=== PATIENT | female | born 1960 | race Caucasian/White ===

== ENCOUNTER 2018-04-25 17:20 | Emergency (ER) | payer MEDICAID ==
[~2018-04-25] VITALS: Ht 149.9 cm; Wt 78.9 kg
[2018-04-25 17:37] VITALS: BP 141/97
== END 2018-04-25 18:41 | disposition home or self-care (01) ==
LOC: ED 18:05
DX: K13.0 Diseases of lips (principal); K21.9 Gastro-esophageal reflux disease without esophagitis; Z87.891 Personal history of nicotine dependence
CPT/HCPCS: 10160; 99284

== ENCOUNTER 2018-09-09 09:19 | Inpatient (IN) | payer MEDICAID ==
[~2018-09-09] VITALS: Ht 149.9 cm; Wt 91.4 kg
--- NOTE | 2018-09-09 10:22 | NUR ---
PT C/O FOOT PAIN, LEGS HURT, LEFT SHOULDER, KNEES AND MAY ALONG WITH CHEST AND ABDOMINAL PAIN.
[2018-09-09 10:37] LABS: MEAN CORPUSCULAR HEMOGLOBIN 27.2 pg (27.0-34.8); MEAN CORPUSCULAR HGB CONC 32.5 g/dL (32.4-35.8); MEAN CORPUSCULAR VOLUME 83.6 fL (80-100); MEAN PLATELET VOLUME 7.5 fL (7.4-10.4); PLATELET COUNT 298 x10^3/uL (130-400); RED BLOOD COUNT 4.75 x10^6/uL (3.82-5.3); RED CELL DISTRIBUTION WIDTH 13.6 % (9.6-15.2)
[2018-09-09 10:45] LABS: ALANINE AMINOTRANSFERASE 22 U/L (12-78); ALBUMIN 3.4 g/dL (3.4-5.0); ANION GAP 9 mmol/L (5-15); CALCIUM 8.5 mg/dL (8.5-10.1); CHLORIDE 107 mmol/L (98-107); CREATININE 1.27 mg/dL (0.55-1.02)
[2018-09-09 10:49] LABS: ALKALINE PHOSPHATASE 99 U/L (45-117); BILIRUBIN,TOTAL 0.4 mg/dL (0.2-1.0); CREATINE KINASE, TOTAL 85 U/L (26-192); TOTAL PROTEIN 6.9 g/dL (6.4-8.2); TROPONIN I < 0.015 ng/mL (0.000-0.045)
[2018-09-09 10:54] LABS: MD YES
[2018-09-09 10:55] LABS: BAND#(MANUAL) 1.54 x10^3/uL; BANDS%(MANUAL) 7 % (0-7); MONOS#(MANUAL) 0.44 x10^3/uL (0.3-2.7); MONOS% (MANUAL) 2 % (2-9)
[2018-09-09 10:56] LABS: <RBC MORPHOLOGY> NORMAL; LYMPH#(MANUAL) 0.88 x10^3/uL (1-3.4); LYMPHS% (MANUAL) 4 % (22-44); SEG#(MANUAL) 19.14 x10^3/uL (1.8-6.8); SEGS% (MANUAL) 87 % (42-75)
[2018-09-09 10:57] LABS: <PLATELET ESTIMATE> ADEQUATE; <PLT MORPHOLOGY> NORMAL PLT MORPH
[2018-09-09] MEDS ORDERED: AZITHROMYCIN 500 MG in SODIUM CHLORIDE 0.9% 250 ML IVPB ONE (11:00)
[2018-09-09] MEDS ORDERED: CEFTRIAXONE PMX 1GM/50ML 50 ML IVPB ONE (11:00)
[2018-09-09 11:16] LABS: MICROSCOPIC AUTO
[2018-09-09 11:22] LABS: CULTURE INDICATED? YES
[2018-09-09] MEDS ORDERED: CEFTRIAXONE PMX 1GM/50ML 50 ML ONE (11:27)
[2018-09-09] MEDS ORDERED: BUPR-86 PO (11:49)
[2018-09-09] MEDS ORDERED: OMEP40CA6 PO (11:49)
[2018-09-09] MEDS ORDERED: PARO40TA3 PO (11:49)
[2018-09-09] MEDS ORDERED: TRAZ-137 PO (11:49)
[2018-09-09] MEDS ORDERED: TOPI50TA8 PO (11:51)
[2018-09-09] MEDS ORDERED: ONDANSETRON 2MG/ML, 2ML ONE (11:53)
[2018-09-09] MEDS ORDERED: MORPHINE SULFATE 4 MG/ML, 1ML ONE ×2 (11:53→13:44)
[2018-09-09] MEDS: MORPHINE SULFATE 4 MG/ML, 1ML IVPush PRN ×2 (11:54→13:45)
[2018-09-09] MEDS ORDERED: ONDANSETRON 2MG/ML, 2ML IVP ONE (12:00)
--- NOTE | 2018-09-09 12:15 | NUR ---
AFTER MEDICATED FOR MAY PT TO CT
[2018-09-09] MEDS ORDERED: OMNIPAQUE 350 MG/ML, 100ML BOTTLE ONE (12:48)
[2018-09-09] MEDS ORDERED: SODIUM CHLORIDE FLUSH 10ML SYR IVF PRN (13:30)
--- NOTE | 2018-09-09 14:20 | NUR ---
DECREASE IN BP TO 87. IV BOLUS INFUSING PER HOSPITIALIST ORDER
[2018-09-09] MEDS ORDERED: POTASSIUM CHLORIDE 20 MEQ TAB.ER.PRT PO ONE (14:30)
[2018-09-09] MEDS ORDERED: SODIUM CHLORIDE 0.9% 1,000ML IVBOLUS ONE ×2 (14:30→15:30)
[2018-09-09] MEDS ORDERED: ONDANSETRON 2MG/ML, 2ML IVPush PRN (14:30)
--- NOTE | 2018-09-09 14:46 | NUR ---
REPORT TO ELIANA DEE
--- NOTE | 2018-09-09 14:46 | NUR ---
PT A&O X4, CONTINUES TO C/O FEELING FATIUGED. SKIN P/W/D
[2018-09-09 15:09] LABS: RAPID INFLUENZA A Negative (Negative); RAPID INFLUENZA B Negative (Negative)
[2018-09-09 15:12] VITALS: BP 93/62
[2018-09-09] MEDS: ENOXAPARIN 40 MG/0.4 ML SQ SCH (16:03)
[2018-09-09] MEDS: ACETAMINOPHEN 325 MG TABLET PO PRN (17:48)
[2018-09-09 18:42] VITALS: BP 85/53
[2018-09-09 19:20] VITALS: BP 95/54
[2018-09-09] MEDS: SODIUM CHLORIDE 0.9% 1,000 ML IV SCH (20:29)
[2018-09-09] MEDS: TRAZODONE 100MG TABLET PO SCH (21:00)
[2018-09-09 21:30] VITALS: BP 84/57
[2018-09-09 22:14] VITALS: BP 88/56
[2018-09-10] VITALS (8 sets, daily range): BP systolic 83–124; BP diastolic 49–69
[2018-09-10] MEDS: ACETAMINOPHEN 325 MG TABLET PO PRN ×4 (01:04→21:59)
[2018-09-10] MEDS: SODIUM CHLORIDE 0.9% 1,000 ML IV SCH ×3 (03:16→18:22)
[2018-09-10] MEDS ORDERED: SODIUM CHLORIDE 0.9% 1,000ML IVBOLUS ONE (08:00)
[2018-09-10] MEDS: BUPROPION HCL 200 MG PO SCH (09:00)
[2018-09-10 09:02] LABS: BASOPHILS # (AUTO) 0.01 x10^3/uL (0-0.1); BASOPHILS % (AUTO) 0 % (0-1); EOSINOPHILS # (AUTO) 0.11 x10^3/uL (0-0.4); EOSINOPHILS % (AUTO) 1 % (1-7); LYMPHOCYTES # (AUTO) 1.25 x10^3/uL (1-3.4); LYMPHOCYTES % (AUTO) 10 % (22-44); MD NO; MEAN CORPUSCULAR HEMOGLOBIN 27.1 pg (27.0-34.8); MEAN CORPUSCULAR HGB CONC 32.4 g/dL (32.4-35.8); MEAN CORPUSCULAR VOLUME 83.6 fL (80-100); MEAN PLATELET VOLUME 7.3 fL (7.4-10.4); MONOCYTES # (AUTO) 0.31 x10^3/uL (0.2-0.8); MONOCYTES % (AUTO) 3 % (2-9); NEUTROPHILS # (AUTO) 10.98 x10^3/uL (1.8-6.8); NEUTROPHILS % (AUTO) 87 % (42-75); PLATELET COUNT 252 x10^3/uL (130-400); RED CELL DISTRIBUTION WIDTH 13.9 % (9.6-15.2)
[2018-09-10 09:09] LABS: ANION GAP 10 mmol/L (5-15); CHLORIDE 116 mmol/L (98-107); CREATININE 0.92 mg/dL (0.55-1.02)
[2018-09-10] MEDS: PAROXETINE 20 MG TABLET PO SCH (09:11)
[2018-09-10] MEDS: OMEPRAZOLE 20 MG CAPSULE.DR PO SCH (09:11)
[2018-09-10] MEDS: CEFTRIAXONE PMX 2GM/50ML 50 ML IV SCH (11:25)
[2018-09-10] MEDS: AZITHROMYCIN 500 MG in SODIUM CHLORIDE 0.9% 250 ML IV SCH (12:12)
[2018-09-10] MEDS: ENOXAPARIN 40 MG/0.4 ML SQ SCH (16:32)
[2018-09-10] MEDS: TRAZODONE 100MG TABLET PO SCH (20:48)
[2018-09-11] MEDS: SODIUM CHLORIDE 0.9% 1,000 ML IV SCH ×3 (01:02→19:48)
[2018-09-11 02:30] VITALS: BP 133/82
[2018-09-11 06:18] LABS: BASOPHILS # (AUTO) 0.03 x10^3/uL (0-0.1); BASOPHILS % (AUTO) 0 % (0-1); EOSINOPHILS # (AUTO) 0.18 x10^3/uL (0-0.4); EOSINOPHILS % (AUTO) 2 % (1-7); LYMPHOCYTES # (AUTO) 1.24 x10^3/uL (1-3.4); LYMPHOCYTES % (AUTO) 12 % (22-44); MD NO; MEAN CORPUSCULAR HGB CONC 32.8 g/dL (32.4-35.8); MEAN CORPUSCULAR VOLUME 85.4 fL (80-100); MEAN PLATELET VOLUME 8.1 fL (7.4-10.4); MONOCYTES # (AUTO) 0.43 x10^3/uL (0.2-0.8); MONOCYTES % (AUTO) 4 % (2-9); NEUTROPHILS # (AUTO) 8.68 x10^3/uL (1.8-6.8); NEUTROPHILS % (AUTO) 82 % (42-75); PLATELET COUNT 271 x10^3/uL (130-400); RED BLOOD COUNT 3.95 x10^6/uL (3.82-5.3); RED CELL DISTRIBUTION WIDTH 13.7 % (9.6-15.2)
[2018-09-11 06:27] LABS: ANION GAP 4 mmol/L (5-15); CALCIUM 8.6 mg/dL (8.5-10.1); CHLORIDE 113 mmol/L (98-107); CREATININE 0.95 mg/dL (0.55-1.02)
[2018-09-11 07:27] VITALS: BP 138/81
[2018-09-11] MEDS: BUPROPION HCL 200 MG PO SCH (08:37)
[2018-09-11] MEDS: PAROXETINE 20 MG TABLET PO SCH (08:37)
[2018-09-11] MEDS: OMEPRAZOLE 20 MG CAPSULE.DR PO SCH (08:37)
[2018-09-11] MEDS ORDERED: POTASSIUM CHLORIDE 20 MEQ TAB.ER.PRT PO ONE (09:30)
[2018-09-11] MEDS: CEFTRIAXONE PMX 2GM/50ML 50 ML IV SCH (11:34)
[2018-09-11] MEDS: AZITHROMYCIN 500 MG in SODIUM CHLORIDE 0.9% 250 ML IV SCH (12:13)
[2018-09-11] MEDS: ACETAMINOPHEN 325 MG TABLET PO PRN ×2 (12:18→19:48)
[2018-09-11 13:13] VITALS: BP 137/70
[2018-09-11] MEDS: ENOXAPARIN 40 MG/0.4 ML SQ SCH (15:54)
[2018-09-11] MEDS ORDERED: MAGNESIUM SULFATE PMX 2GM/50ML 50 ML IV ONE (16:30)
[2018-09-11] MEDS: TRAZODONE 100MG TABLET PO SCH (19:48)
[2018-09-11 20:10] VITALS: BP 116/74
[2018-09-12] MEDS: ACETAMINOPHEN 325 MG TABLET PO PRN ×2 (01:21→12:36)
[2018-09-12 01:31] VITALS: BP 137/79
[2018-09-12] MEDS: SODIUM CHLORIDE 0.9% 1,000 ML IV SCH ×3 (02:00→16:00)
[2018-09-12 05:44] LABS: ALANINE AMINOTRANSFERASE 13 U/L (12-78); ALBUMIN 2.8 g/dL (3.4-5.0); ANION GAP 4 mmol/L (5-15); CALCIUM 8.6 mg/dL (8.5-10.1); CHLORIDE 114 mmol/L (98-107); CREATININE 0.89 mg/dL (0.55-1.02)
[2018-09-12 05:48] LABS: ALKALINE PHOSPHATASE 79 U/L (45-117); BILIRUBIN,TOTAL 0.3 mg/dL (0.2-1.0); TOTAL PROTEIN 6.6 g/dL (6.4-8.2); TROPONIN I < 0.015 ng/mL (0.000-0.045)
[2018-09-12 06:08] LABS: BASOPHILS # (AUTO) 0.04 x10^3/uL (0-0.1); BASOPHILS % (AUTO) 1 % (0-1); EOSINOPHILS # (AUTO) 0.25 x10^3/uL (0-0.4); EOSINOPHILS % (AUTO) 3 % (1-7); LYMPHOCYTES # (AUTO) 1.48 x10^3/uL (1-3.4); LYMPHOCYTES % (AUTO) 18 % (22-44); MD NO; MEAN CORPUSCULAR HEMOGLOBIN 27.7 pg (27.0-34.8); MEAN CORPUSCULAR HGB CONC 32.6 g/dL (32.4-35.8); MEAN CORPUSCULAR VOLUME 85.1 fL (80-100); MEAN PLATELET VOLUME 7.9 fL (7.4-10.4); MONOCYTES # (AUTO) 0.32 x10^3/uL (0.2-0.8); MONOCYTES % (AUTO) 4 % (2-9); NEUTROPHILS % (AUTO) 75 % (42-75); PLATELET COUNT 310 x10^3/uL (130-400); RED BLOOD COUNT 4.27 x10^6/uL (3.82-5.3); RED CELL DISTRIBUTION WIDTH 13.8 % (9.6-15.2)
[2018-09-12 07:11] VITALS: BP 117/71
[2018-09-12] MEDS: BUPROPION HCL 200 MG PO SCH (08:35)
[2018-09-12] MEDS: OMEPRAZOLE 20 MG CAPSULE.DR PO SCH (08:37)
[2018-09-12] MEDS: PAROXETINE 20 MG TABLET PO SCH (08:37)
[2018-09-12] MEDS ORDERED: MAGNESIUM OXIDE 400 MG TABLET PO SCH (09:00)
[2018-09-12] MEDS: CEFTRIAXONE PMX 2GM/50ML 50 ML IV SCH (11:56)
[2018-09-12] MEDS: AZITHROMYCIN 500 MG in SODIUM CHLORIDE 0.9% 250 ML IV SCH (12:36)
[2018-09-12 13:04] VITALS: BP 125/77
[2018-09-12] MEDS ORDERED: CEFDINIR 300 MG CAPSULE PO SCH (15:30)
[2018-09-12] MEDS ORDERED: AZIT500T5 PO (15:40)
[2018-09-12] MEDS ORDERED: LACT1TAB13 PO (15:40)
[2018-09-12] MEDS ORDERED: CEFD300C37 PO (15:40)
[2018-09-12] MEDS ORDERED: MAGN400T50 PO (15:40)
[2018-09-12] MEDS: ENOXAPARIN 40 MG/0.4 ML SQ SCH (16:00)
[2018-09-13] MEDS ORDERED: AZITHROMYCIN 500 MG TABLET PO SCH (09:00)
== END 2018-09-12 18:28 | disposition home or self-care (01) | DRG 871 ==
LOC: ED 10:44 → EDIP 13:29 → 4EST 15:17
PROVIDERS: ADMIT Internal Medicine; ATTEND Internal Medicine
DX: A41.9 Sepsis, unspecified organism (principal); J15.9 Unspecified bacterial pneumonia; N17.0 Acute kidney failure with tubular necrosis; R65.21 Severe sepsis with septic shock; Z68.41 Body mass index [BMI] 40.0-44.9, adult; D63.8 Anemia in other chronic diseases classified elsewhere; E83.42 Hypomagnesemia; E87.6 Hypokalemia; F32.9 Major depressive disorder, single episode, unspecified; K21.9 Gastro-esophageal reflux disease without esophagitis; F41.9 Anxiety disorder, unspecified; E66.9 Obesity, unspecified; I10 Essential (primary) hypertension; K44.9 Diaphragmatic hernia without obstruction or gangrene; Z80.9 Family history of malignant neoplasm, unspecified; Z82.49 Family history of ischemic heart disease and other diseases of the circulatory system; Z83.3 Family history of diabetes mellitus; Z87.891 Personal history of nicotine dependence; Z79.899 Other long term (current) drug therapy
CPT/HCPCS: 36415; 70450; 71046; 71275; 80048; 80053; 81001; 82550; 83605; 83735; 84100; 84484; 85025; 85379; 86738; 87040; 87086; 87400; 87449; 87633; 93005; 96365; 96375; G0378; J0456; J0696; J1650; J2405; Q9967; J2270; J3475; J7030; J7050

== ENCOUNTER 2020-07-21 17:52 | Inpatient (IN) | payer MEDICAID, OTHER ==
[~2020-07-21] VITALS: Ht 154.9 cm; Wt 86.2 kg
[~2020-07-21 17:52] MED LIST: AZIT500T10 PO; BUPR-86 PO; CEFD300C37 PO; LACT1TAB13 PO; MAGN400T50 PO; OMEP40CA42 PO; PARO40TA3 PO; TOPI50TA8 PO; TRAZ-175 PO
[2020-07-21 18:22] LABS: BASOPHILS % (AUTO) 2 % (0-1); EOSINOPHILS % (AUTO) 2 % (1-7); LYMPHOCYTES % (AUTO) 39 % (22-44); MD NO; MEAN CORPUSCULAR HEMOGLOBIN 32.5 pg (27.0-34.8); MEAN CORPUSCULAR HGB CONC 34.5 g/dL (32.4-35.8); MEAN PLATELET VOLUME 6.9 fL (7.4-10.4); MONOCYTES % (AUTO) 7 % (2-9); NEUTROPHILS % (AUTO) 50 % (42-75); PLATELET COUNT 223 x10^3/uL (130-400); RED BLOOD COUNT 4.42 x10^6/uL (3.82-5.3); RED CELL DISTRIBUTION WIDTH 13.4 % (9.6-15.2)
[2020-07-21 18:30] LABS: ALBUMIN 3.8 g/dL (3.4-5.0); ANION GAP 10 mmol/L (5-15); CALCIUM 8.3 mg/dL (8.5-10.1); CHLORIDE 111 mmol/L (98-107); SALICYLATE LEVEL < 1.7 mg/dL (2.8-20.0)
[2020-07-21] MEDS ORDERED: SODIUM CHLORIDE 0.9% 1,000 ML IV ONE ×2 (18:30→20:30)
[2020-07-21] MEDS ORDERED: SODIUM CHLORIDE FLUSH 10ML SYR IVF ONE (18:30)
[2020-07-21] MEDS ORDERED: SODIUM CHLORIDE 0.9% 1,000ML IVBOLUS ONE (18:30)
[2020-07-21 18:33] LABS: ALANINE AMINOTRANSFERASE 35 U/L (12-78); ALKALINE PHOSPHATASE 70 U/L (45-117); BILIRUBIN,TOTAL 0.2 mg/dL (0.2-1.0); CREATININE 0.86 mg/dL (0.55-1.02); TOTAL PROTEIN 7.7 g/dL (6.4-8.2)
--- NOTE | 2020-07-21 18:50 | NUR ---
BIBA for SA with "no more than a pint of Vodka" per and approx 45 pills of 25mg Benadryl. Consumption time known to after 1500, thought to be around 1600. Hx of depression, no known of SI/SA. Pt lost her son to suicide on 07/09/20, per EMS because of this pt wanted to "go to sleep and not wake up." This RN unable to do suicide screening due to pt's neuro status. Initial contact with pt: Pt ambulatory with contact assist to bathroom upon arrival to ER, in attempt to obtain UA. Pt changed in to gown with assistance, connected to all monitors. , Isaiah to bedside, pt able to answer yes/ no question if it was okay that he was at bedside. Pt's RA sat down to 88% placed on 2L NC, no 96%.
--- NOTE | 2020-07-21 19:00 | NUR ---
ASSUMED CARE OF PATIENT BEDSIDE REPORT GONE.
--- NOTE | 2020-07-21 19:28 | NUR ---
MIHIR, PREVIOUS MINES SAFETY ENGINEER REPORTS POISON CONTROL WAS CALLED: [id number]
--- NOTE | 2020-07-21 19:29 | NUR ---
AT BEDSIDE WITH PATIENT. PT ANXIOUS. VS STABLE. FIBERGLASS PRODUCT TESTER ON. SINUS TACH NOTED. PT IS A&O X4. WILL CONTINUE TO MONITOR.
--- NOTE | 2020-07-21 20:08 | NUR ---
DR DÍAZ IN ROOM. VS STABLE. AT BEDSIDE. PER DR DÍAZ PT IS OKAY TO DRINK WATER.
[2020-07-21] MEDS ORDERED: SODIUM CHLORIDE FLUSH 10ML SYR IVF PRN (20:30)
--- NOTE | 2020-07-21 20:45 | NUR ---
PT USED BEDSIDE COMMODE. PT BECOMING MORE ALERT. AT BEDSIDE. OCEANOLOGIST ON. SINUS TACH NOTED. WILL CONTINUE TO MONITOR.
--- NOTE | 2020-07-21 21:03 | NUR ---
PT IN ROOM VISITING WITH . VS STABLE. NO ACUTE DISTRESS NOTED. CALL LIGHT IN PLACE. WILL CONTINUE TO MONITOR.
[2020-07-21 21:11] LABS: AMPHETAMINE SCREEN, URINE Negative (Negative); BARBITURATE SCREEN, URINE Negative (Negative); BENZODIAZEPINE SCREEN, URINE Negative (Negative); CANNABINOID SCREEN, URINE Negative (Negative); COCAINE SCREEN, URINE Negative (Negative); METHADONE SCREEN, URINE Negative (Negative); OPIATE SCREEN, URINE Negative (Negative)
--- NOTE | 2020-07-21 21:13 | NUR ---
PT WATCHING TV IN ROOM. VS STABLE. PT LESS DROWSY. PLAN CONSULTANT ON. CALL LIGHT IN PLACE. WILL CONTINUE TO MONITOR.
--- NOTE | 2020-07-21 21:46 | NUR ---
PT USED BEDSIDE COMMODE. PT IS NOT STEADY ON HER FEET. VS STABLE. ACCOUNTANT CERTIFIED PUBLIC ON. SINUS TACH NOTED. WILL CONTINUE TO MONITOR.
[2020-07-21] MEDS ORDERED: ONDANSETRON ODT 4 MG PO PRN (22:00)
[2020-07-21] MEDS ORDERED: LORazepam 2 MG/ML, 1ML IV PRN ×4 (22:00)
[2020-07-21] MEDS ORDERED: PROMETHAZINE 25 MG/ML, 1ML IM PRN (22:00)
[2020-07-21] MEDS ORDERED: BISACODYL 10 MG SUPP PR PRN (22:00)
[2020-07-21] MEDS ORDERED: LORazepam 1MG TABLET PO PRN ×3 (22:00)
[2020-07-21] MEDS ORDERED: DOCUSATE 100 MG CAPSULE PO PRN (22:00)
[2020-07-21] MEDS ORDERED: LORazepam 0.5MG TABLET PO PRN (22:00)
[2020-07-21] MEDS ORDERED: hydrALAzine 20 MG/ML, 1ML IVPush PRN (22:00)
[2020-07-21] MEDS ORDERED: POLYETHYLENE GLYCOL 17 GM PACKET PO PRN (22:00)
--- NOTE | 2020-07-21 22:08 | NUR ---
REPORT CALLED INTO [facility] ON [employer]
[2020-07-21 22:12] VITALS: BP 149/96
[2020-07-21] MEDS: POTASSIUM CHLORIDE 40 MEQ in D5%-0.9% NACL 1,000 ML IV SCH (23:33)
[2020-07-21] MEDS: ONDANSETRON 2MG/ML, 2ML IVPush PRN (23:33)
[2020-07-21] MEDS: HEPARIN 5,000 UNITS/ML, 1ML SQ SCH (23:33)
[2020-07-22 01:00] VITALS: BP 138/82
[2020-07-22] MEDS: OXYcodone IR 5MG TABLET PO PRN ×2 (02:14→11:03)
[2020-07-22] MEDS: LORazepam 2 MG/ML, 1ML IV PRN ×2 (02:22→05:40)
[2020-07-22 05:35] LABS: BASOPHILS % (AUTO) 1 % (0-1); EOSINOPHILS % (AUTO) 0 % (1-7); LYMPHOCYTES % (AUTO) 19 % (22-44); MEAN CORPUSCULAR HEMOGLOBIN 32.8 pg (27.0-34.8); MEAN PLATELET VOLUME 7.2 fL (7.4-10.4); MONOCYTES % (AUTO) 6 % (2-9); NEUTROPHILS % (AUTO) 75 % (42-75); PLATELET COUNT 225 x10^3/uL (130-400); RED BLOOD COUNT 4.49 x10^6/uL (3.82-5.3); RED CELL DISTRIBUTION WIDTH 13.4 % (9.6-15.2)
[2020-07-22] MEDS: ONDANSETRON 2MG/ML, 2ML IVPush PRN ×2 (05:40→19:46)
[2020-07-22 05:44] LABS: MD NO
[2020-07-22 05:46] LABS: CHLORIDE 104 mmol/L (98-107)
[2020-07-22 06:02] LABS: ALANINE AMINOTRANSFERASE 34 U/L (12-78); ALBUMIN 3.8 g/dL (3.4-5.0); ALKALINE PHOSPHATASE 71 U/L (45-117); ANION GAP 9 mmol/L (5-15); BILIRUBIN,TOTAL 0.5 mg/dL (0.2-1.0); CALCIUM 8.1 mg/dL (8.5-10.1); CHOLESTEROL, TOTAL 194 mg/dL (140-239); HDL CHOL % 33 % (28-40); HDL CHOLESTEROL (DIRECT) 64 mg/dL (40-60); LDL CHOLESTEROL,CALCULATED 95 mg/dL (54-169); LDL/HDL RATIO 1.5 (0.5-3.0); TOTAL PROTEIN 7.7 g/dL (6.4-8.2); TRIGLYCERIDES 173 mg/dL (50-200); VLDL CHOLESTEROL 35 mg/dL (0-25)
[2020-07-22 06:37] VITALS: BP 150/104
[2020-07-22] MEDS: POTASSIUM CHLORIDE 40 MEQ in D5%-0.9% NACL 1,000 ML IV SCH (08:00)
[2020-07-22] MEDS ORDERED: MAGNESIUM SULFATE PMX 2GM/50ML 50 ML IV ONE ×2 (08:00→20:00)
[2020-07-22] MEDS: HEPARIN 5,000 UNITS/ML, 1ML SQ SCH ×3 (08:20→23:30)
[2020-07-22] MEDS: THIAMINE 100MG TABLET PO SCH (08:21)
[2020-07-22] MEDS: LORazepam 1MG TABLET PO PRN ×4 (08:21→17:51)
[2020-07-22] MEDS: MULTIVITAMINS/MINERALS TABLET PO SCH (08:21)
[2020-07-22] MEDS: FOLIC ACID 1 MG TABLET PO SCH (08:21)
[2020-07-22 12:14] VITALS: BP 147/102
[2020-07-22 18:15] VITALS: BP 150/95
[2020-07-22 19:41] VITALS: BP 128/92
[2020-07-23] MEDS: OXYcodone IR 5MG TABLET PO PRN (01:36)
[2020-07-23 01:46] VITALS: BP 129/88
[2020-07-23 06:26] LABS: BASOPHILS % (AUTO) 1 % (0-1); EOSINOPHILS % (AUTO) 1 % (1-7); LYMPHOCYTES % (AUTO) 18 % (22-44); MEAN CORPUSCULAR HEMOGLOBIN 32.5 pg (27.0-34.8); MEAN CORPUSCULAR HGB CONC 34.3 g/dL (32.4-35.8); MEAN PLATELET VOLUME 7.3 fL (7.4-10.4); MONOCYTES % (AUTO) 6 % (2-9); NEUTROPHILS % (AUTO) 74 % (42-75); PLATELET COUNT 240 x10^3/uL (130-400); RED BLOOD COUNT 4.74 x10^6/uL (3.82-5.3); RED CELL DISTRIBUTION WIDTH 13.4 % (9.6-15.2)
[2020-07-23 06:27] LABS: MD NO
[2020-07-23 06:30] LABS: ALANINE AMINOTRANSFERASE 32 U/L (12-78); ALBUMIN 3.4 g/dL (3.4-5.0); ANION GAP 7 mmol/L (5-15); CALCIUM 8.2 mg/dL (8.5-10.1); CHLORIDE 105 mmol/L (98-107); CREATININE 0.94 mg/dL (0.55-1.02)
[2020-07-23 06:33] LABS: ALKALINE PHOSPHATASE 84 U/L (45-117); BILIRUBIN,TOTAL 1.3 mg/dL (0.2-1.0); TOTAL PROTEIN 7.2 g/dL (6.4-8.2)
[2020-07-23 07:28] VITALS: BP 113/81
[2020-07-23] MEDS: MULTIVITAMINS/MINERALS TABLET PO SCH (08:58)
[2020-07-23] MEDS: SERTRALINE 50MG TABLET PO SCH (08:59)
[2020-07-23] MEDS: THIAMINE 100MG TABLET PO SCH (08:59)
[2020-07-23] MEDS: FOLIC ACID 1 MG TABLET PO SCH (08:59)
[2020-07-23] MEDS: HEPARIN 5,000 UNITS/ML, 1ML SQ SCH ×2 (08:59→18:26)
[2020-07-23] MEDS: LORazepam 1MG TABLET PO PRN ×2 (09:52→18:39)
[2020-07-23 12:00] VITALS: BP 120/87
[2020-07-23] MEDS: ACETAMINOPHEN 325 MG TABLET PO PRN (18:39)
[2020-07-23 19:30] VITALS: BP 88/60
[2020-07-23] MEDS ORDERED: RISPERIDONE 1 MG TABLET PO PRN (20:00)
[2020-07-24 00:54] VITALS: BP 104/72
[2020-07-24] MEDS: HEPARIN 5,000 UNITS/ML, 1ML SQ SCH ×3 (02:10→17:56)
[2020-07-24 05:24] LABS: BASOPHILS % (AUTO) 1 % (0-1); EOSINOPHILS % (AUTO) 2 % (1-7); LYMPHOCYTES % (AUTO) 24 % (22-44); MEAN CORPUSCULAR HEMOGLOBIN 32.4 pg (27.0-34.8); MEAN CORPUSCULAR HGB CONC 34.1 g/dL (32.4-35.8); MEAN PLATELET VOLUME 7.5 fL (7.4-10.4); MONOCYTES % (AUTO) 6 % (2-9); NEUTROPHILS % (AUTO) 67 % (42-75); PLATELET COUNT 210 x10^3/uL (130-400); RED BLOOD COUNT 4.57 x10^6/uL (3.82-5.3); RED CELL DISTRIBUTION WIDTH 13.9 % (9.6-15.2)
[2020-07-24 05:30] LABS: ANION GAP 7 mmol/L (5-15); CALCIUM 8.2 mg/dL (8.5-10.1); CHLORIDE 105 mmol/L (98-107); CREATININE 0.96 mg/dL (0.55-1.02)
[2020-07-24 05:31] LABS: ALANINE AMINOTRANSFERASE 28 U/L (12-78)
[2020-07-24 05:32] LABS: ALKALINE PHOSPHATASE 68 U/L (45-117); BILIRUBIN,TOTAL 0.9 mg/dL (0.2-1.0); TOTAL PROTEIN 6.7 g/dL (6.4-8.2)
[2020-07-24 05:43] LABS: MD NO
[2020-07-24 07:44] VITALS: BP 110/79
[2020-07-24] MEDS: MULTIVITAMINS/MINERALS TABLET PO SCH (09:03)
[2020-07-24] MEDS: SERTRALINE 50MG TABLET PO SCH (09:04)
[2020-07-24] MEDS: THIAMINE 100MG TABLET PO SCH (09:04)
[2020-07-24] MEDS: FOLIC ACID 1 MG TABLET PO SCH (09:06)
[2020-07-24 12:54] VITALS: BP 102/68
[2020-07-24] MEDS ORDERED: RISP1TAB90 PO (16:05)
[2020-07-24] MEDS ORDERED: SERT50TA28 PO (16:05)
[2020-07-24] MEDS ORDERED: MULT-484 PO (16:05)
[2020-07-24] MEDS ORDERED: TRAZ-175 PO (16:05)
[2020-07-24 19:53] VITALS: BP 131/69
[2020-07-24] MEDS: TRAZODONE 100MG TABLET PO PRN (20:42)
[2020-07-25] MEDS: HEPARIN 5,000 UNITS/ML, 1ML SQ SCH ×3 (02:08→17:55)
[2020-07-25 02:10] VITALS: BP 95/69
[2020-07-25 05:36] LABS: BASOPHILS % (AUTO) 0 % (0-1); EOSINOPHILS % (AUTO) 2 % (1-7); LYMPHOCYTES % (AUTO) 27 % (22-44); MEAN CORPUSCULAR HEMOGLOBIN 32.6 pg (27.0-34.8); MEAN CORPUSCULAR HGB CONC 34.1 g/dL (32.4-35.8); MEAN PLATELET VOLUME 7.6 fL (7.4-10.4); MONOCYTES % (AUTO) 7 % (2-9); NEUTROPHILS % (AUTO) 63 % (42-75); PLATELET COUNT 218 x10^3/uL (130-400); RED BLOOD COUNT 4.41 x10^6/uL (3.82-5.3); RED CELL DISTRIBUTION WIDTH 13.5 % (9.6-15.2)
[2020-07-25 05:37] LABS: CHLORIDE 106 mmol/L (98-107)
[2020-07-25 05:43] LABS: MD NO
[2020-07-25 05:44] LABS: ALANINE AMINOTRANSFERASE 30 U/L (12-78); ALKALINE PHOSPHATASE 63 U/L (45-117); ANION GAP 6 mmol/L (5-15); BILIRUBIN,TOTAL 0.5 mg/dL (0.2-1.0); CALCIUM 8.6 mg/dL (8.5-10.1); CREATININE 0.91 mg/dL (0.55-1.02); TOTAL PROTEIN 6.7 g/dL (6.4-8.2)
[2020-07-25 07:04] VITALS: BP 99/68
[2020-07-25] MEDS: MULTIVITAMINS/MINERALS TABLET PO SCH (08:54)
[2020-07-25] MEDS: FOLIC ACID 1 MG TABLET PO SCH (08:54)
[2020-07-25] MEDS: SERTRALINE 50MG TABLET PO SCH (08:55)
[2020-07-25] MEDS: THIAMINE 100MG TABLET PO SCH (08:55)
[2020-07-25 12:02] VITALS: BP 106/80
[2020-07-25] MEDS: CALCIUM CARBONATE 500 MG TAB.CHEW PO PRN ×2 (12:28→20:48)
[2020-07-25 20:34] VITALS: BP 135/88
[2020-07-25] MEDS: TRAZODONE 100MG TABLET PO PRN (20:48)
[2020-07-26] MEDS: HEPARIN 5,000 UNITS/ML, 1ML SQ SCH ×3 (02:01→17:36)
[2020-07-26 02:08] VITALS: BP 115/83
[2020-07-26 08:40] VITALS: BP 124/88
[2020-07-26] MEDS: SERTRALINE 50MG TABLET PO SCH (08:59)
[2020-07-26] MEDS: FOLIC ACID 1 MG TABLET PO SCH (08:59)
[2020-07-26] MEDS: MULTIVITAMINS/MINERALS TABLET PO SCH (08:59)
[2020-07-26] MEDS: THIAMINE 100MG TABLET PO SCH (08:59)
[2020-07-26 11:45] VITALS: BP 114/82
[2020-07-26 12:24] VITALS: BP 114/82
[2020-07-26] MEDS: CALCIUM CARBONATE 500 MG TAB.CHEW PO PRN ×3 (12:56→22:34)
[2020-07-26 19:45] VITALS: BP 125/87
[2020-07-26] MEDS: TRAZODONE 100MG TABLET PO PRN (21:26)
[2020-07-26] MEDS ORDERED: OMEP10CA5 PO (22:25)
[2020-07-27] MEDS ORDERED: MAALOX/HYOSCYAMINE/LIDOCAINE 45 ML BTL PO ONE
[2020-07-27 01:22] VITALS: BP 105/74
[2020-07-27] MEDS: HEPARIN 5,000 UNITS/ML, 1ML SQ SCH ×3 (02:16→17:50)
[2020-07-27] MEDS: MULTIVITAMINS/MINERALS TABLET PO SCH (09:16)
[2020-07-27] MEDS: SERTRALINE 50MG TABLET PO SCH (09:16)
[2020-07-27] MEDS: THIAMINE 100MG TABLET PO SCH (09:16)
[2020-07-27] MEDS: FOLIC ACID 1 MG TABLET PO SCH (09:16)
[2020-07-27 09:35] VITALS: BP 89/59
[2020-07-27 13:11] VITALS: BP 93/66
[2020-07-27] MEDS: CALCIUM CARBONATE 500 MG TAB.CHEW PO PRN ×2 (14:05→20:47)
[2020-07-27 19:27] VITALS: BP 107/72
[2020-07-27] MEDS: TRAZODONE 100MG TABLET PO PRN (20:47)
[2020-07-28] MEDS: HEPARIN 5,000 UNITS/ML, 1ML SQ SCH ×3 (01:47→17:34)
[2020-07-28 03:11] VITALS: BP_SYST 114; BP_SYST 96; BP_DIAS 61; BP_DIAS 72
[2020-07-28] MEDS: OMEPRAZOLE 10 MG CAPSULE.DR PO SCH (06:05)
[2020-07-28 07:28] VITALS: BP 96/67
[2020-07-28] MEDS: MULTIVITAMINS/MINERALS TABLET PO SCH (09:57)
[2020-07-28] MEDS: FOLIC ACID 1 MG TABLET PO SCH (09:57)
[2020-07-28] MEDS: THIAMINE 100MG TABLET PO SCH (09:57)
[2020-07-28] MEDS: SERTRALINE 50MG TABLET PO SCH (09:57)
[2020-07-28 13:18] VITALS: BP 100/65
[2020-07-28 19:40] VITALS: BP 103/70
[2020-07-28] MEDS: TRAZODONE 100MG TABLET PO PRN (20:26)
[2020-07-29 00:46] VITALS: BP 98/66
[2020-07-29] MEDS: HEPARIN 5,000 UNITS/ML, 1ML SQ SCH ×3 (02:34→18:00)
[2020-07-29] MEDS: OMEPRAZOLE 10 MG CAPSULE.DR PO SCH (05:48)
[2020-07-29 06:34] VITALS: BP 100/68
[2020-07-29] MEDS: THIAMINE 100MG TABLET PO SCH (10:31)
[2020-07-29] MEDS: MULTIVITAMINS/MINERALS TABLET PO SCH (10:31)
[2020-07-29] MEDS: SERTRALINE 50MG TABLET PO SCH (10:31)
[2020-07-29] MEDS: FOLIC ACID 1 MG TABLET PO SCH (10:31)
[2020-07-29 13:01] VITALS: BP 106/71
[2020-07-29 19:10] VITALS: BP 117/77
[2020-07-29] MEDS: TRAZODONE 100MG TABLET PO PRN (20:50)
[2020-07-30] MEDS: HEPARIN 5,000 UNITS/ML, 1ML SQ SCH ×3 (01:55→18:35)
[2020-07-30 02:08] VITALS: BP 93/55
[2020-07-30] MEDS: OMEPRAZOLE 10 MG CAPSULE.DR PO SCH (05:48)
[2020-07-30 06:42] VITALS: BP 96/61
[2020-07-30] MEDS: SERTRALINE 50MG TABLET PO SCH (08:40)
[2020-07-30] MEDS: FOLIC ACID 1 MG TABLET PO SCH (08:40)
[2020-07-30] MEDS: MULTIVITAMINS/MINERALS TABLET PO SCH (08:40)
[2020-07-30] MEDS: THIAMINE 100MG TABLET PO SCH (08:40)
[2020-07-30 13:25] VITALS: BP 109/75
[2020-07-30 18:58] VITALS: BP 116/79
[2020-07-30] MEDS: TRAZODONE 100MG TABLET PO PRN (20:44)
[2020-07-31] MEDS: HEPARIN 5,000 UNITS/ML, 1ML SQ SCH ×3 (01:03→18:00)
[2020-07-31 02:03] VITALS: BP 110/74
[2020-07-31] MEDS: OMEPRAZOLE 10 MG CAPSULE.DR PO SCH (05:31)
[2020-07-31 07:38] VITALS: BP 111/68
[2020-07-31] MEDS: SERTRALINE 50MG TABLET PO SCH (09:26)
[2020-07-31] MEDS: THIAMINE 100MG TABLET PO SCH (09:26)
[2020-07-31] MEDS: FOLIC ACID 1 MG TABLET PO SCH (09:26)
[2020-07-31] MEDS: MULTIVITAMINS/MINERALS TABLET PO SCH (09:26)
[2020-07-31 13:15] VITALS: BP 123/85
[2020-07-31 19:47] VITALS: BP 104/67
[2020-07-31] MEDS: ACETAMINOPHEN 325 MG TABLET PO PRN (20:17)
[2020-07-31] MEDS: TRAZODONE 100MG TABLET PO PRN (20:17)
[2020-08-01 01:01] VITALS: BP 115/80
[2020-08-01] MEDS: HEPARIN 5,000 UNITS/ML, 1ML SQ SCH ×3 (01:26→17:58)
[2020-08-01] MEDS: OMEPRAZOLE 10 MG CAPSULE.DR PO SCH (05:31)
[2020-08-01 07:59] VITALS: BP 120/78
[2020-08-01] MEDS: SERTRALINE 50MG TABLET PO SCH (08:05)
[2020-08-01] MEDS: THIAMINE 100MG TABLET PO SCH (08:05)
[2020-08-01] MEDS: MULTIVITAMINS/MINERALS TABLET PO SCH (08:05)
[2020-08-01] MEDS: FOLIC ACID 1 MG TABLET PO SCH (08:06)
[2020-08-01 14:19] VITALS: BP 110/75
[2020-08-01 20:59] VITALS: BP 100/64
[2020-08-01] MEDS: TRAZODONE 100MG TABLET PO PRN (21:01)
[2020-08-02 01:25] VITALS: BP 106/72
[2020-08-02] MEDS: HEPARIN 5,000 UNITS/ML, 1ML SQ SCH ×3 (01:54→17:48)
[2020-08-02] MEDS: OMEPRAZOLE 10 MG CAPSULE.DR PO SCH (05:50)
[2020-08-02 07:25] VITALS: BP 102/69
[2020-08-02] MEDS: MULTIVITAMINS/MINERALS TABLET PO SCH (08:47)
[2020-08-02] MEDS: FOLIC ACID 1 MG TABLET PO SCH (08:47)
[2020-08-02] MEDS: SERTRALINE 50MG TABLET PO SCH (08:47)
[2020-08-02] MEDS: THIAMINE 100MG TABLET PO SCH (08:47)
[2020-08-02 13:06] VITALS: BP 104/67
[2020-08-02 20:00] VITALS: BP 124/87
[2020-08-02] MEDS: TRAZODONE 100MG TABLET PO PRN (20:47)
[2020-08-03] MEDS: HEPARIN 5,000 UNITS/ML, 1ML SQ SCH ×3 (01:02→17:00)
[2020-08-03 01:30] VITALS: BP 103/71
[2020-08-03] MEDS: OMEPRAZOLE 10 MG CAPSULE.DR PO SCH (05:31)
[2020-08-03 06:32] VITALS: BP 114/82
[2020-08-03] MEDS: SERTRALINE 50MG TABLET PO SCH (09:03)
[2020-08-03] MEDS: MULTIVITAMINS/MINERALS TABLET PO SCH (09:03)
[2020-08-03] MEDS: FOLIC ACID 1 MG TABLET PO SCH (09:03)
[2020-08-03] MEDS: THIAMINE 100MG TABLET PO SCH (09:03)
[2020-08-03] MEDS: LACTOBACILLUS CHEW TABLET PO SCH ×3 (09:03→20:39)
[2020-08-03 12:13] VITALS: BP 132/82
[2020-08-03] MEDS: ACETAMINOPHEN 325 MG TABLET PO PRN (19:15)
[2020-08-03 19:49] VITALS: BP 93/67
[2020-08-03] MEDS: TRAZODONE 100MG TABLET PO PRN (20:39)
[2020-08-04 01:08] VITALS: BP 99/57
[2020-08-04] MEDS: HEPARIN 5,000 UNITS/ML, 1ML SQ SCH ×2 (02:00→09:12)
[2020-08-04] MEDS: OMEPRAZOLE 10 MG CAPSULE.DR PO SCH (06:07)
[2020-08-04 06:16] VITALS: BP 117/82
[2020-08-04] MEDS: LACTOBACILLUS CHEW TABLET PO SCH (07:53)
[2020-08-04] MEDS: FOLIC ACID 1 MG TABLET PO SCH (07:53)
[2020-08-04] MEDS: MULTIVITAMINS/MINERALS TABLET PO SCH (07:54)
[2020-08-04] MEDS: SERTRALINE 50MG TABLET PO SCH (07:54)
[2020-08-04] MEDS: THIAMINE 100MG TABLET PO SCH (07:54)
[2020-08-04] MEDS: ACETAMINOPHEN 325 MG TABLET PO PRN (08:00)
[2020-08-04] MEDS ORDERED: ACID1TAB7 PO (09:49)
[2020-08-04 12:03] VITALS: BP 105/70
== END 2020-08-04 12:26 | DRG 918 ==
LOC: ED 18:24 → EDIP 20:31 → 4EST 22:12 → 4WST 07-26 20:18 → 3N 07-28 18:27
PROVIDERS: ADMIT Internal Medicine; ATTEND Internal Medicine
DX: T45.0X2A Poisoning by antiallergic and antiemetic drugs, intentional self-harm, initial encounter (principal); F10.230 Alcohol dependence with withdrawal, uncomplicated; F33.2 Major depressive disorder, recurrent severe without psychotic features; J98.11 Atelectasis; R44.3 Hallucinations, unspecified; E66.9 Obesity, unspecified; R00.0 Tachycardia, unspecified; K70.9 Alcoholic liver disease, unspecified; E83.42 Hypomagnesemia; E87.6 Hypokalemia; F10.229 Alcohol dependence with intoxication, unspecified; F17.210 Nicotine dependence, cigarettes, uncomplicated; F41.9 Anxiety disorder, unspecified; F43.21 Adjustment disorder with depressed mood; G47.00 Insomnia, unspecified; I10 Essential (primary) hypertension; K21.9 Gastro-esophageal reflux disease without esophagitis; Z68.37 Body mass index [BMI] 37.0-37.9, adult; Z80.3 Family history of malignant neoplasm of breast; Z83.3 Family history of diabetes mellitus
CPT/HCPCS: 36415; 96374; 99285; J7042; 71045; 80053; 80061; 80299; 80307; 80320; 80329; 82962; 83036; 83735; 84100; 84443; 85025; 93005; G0378; J1644; J2405; J3480; Q0162; G0480; J2060; J3475; J7030